=== PATIENT | female | born 1940 | race Two or more races ===

== ENCOUNTER 2018-08-11 14:51 | Outpatient (CLI) | payer MEDICARE, OTHER ==
--- NOTE | 2018-08-11 15:19 | General Progress Note ---
Assessment/Plan Problem List: (1) Gastritis ICD Codes: K29.70 - Gastritis, unspecified, without bleeding SNOMED: 4488709 (2) H/O adenomatous polyp of colon ICD Codes: Z86.010 - Personal history of colonic polyps SNOMED: 661948567 Assessment/Plan: recent EGD and colonoscopy repeat colon in 5 years VSL#3 decrease protonix to 20 mg RTC in 2 months Subjective ROS Limited/Unobtainable: No Objective General Appearance: alert EENT: normal ENT inspection Neck: supple Cardiovascular: normal rate Respiratory/Chest: lungs clear Abdomen: normal bowel sounds, non tender, soft Extremities: non-tender Anthony Weber MD Aug 11, 2018 15:19
[2018-08-12] MEDS ORDERED: ELIQUIS5 MG PO (17:24)
[2018-08-12] MEDS ORDERED: ASPIR 8181 MG ORAL (17:24)
[2018-08-12] MEDS ORDERED: SIMVASTATIN40 MG ORAL (17:24)
[2018-08-12] MEDS ORDERED: DIGOXIN125 MCG ORAL (17:24)
[2018-08-12] MEDS ORDERED: METOPROLOL TAR100 M1 ORAL (17:24)
[2018-08-12] MEDS ORDERED: MELATONIN5 M5 ORAL (17:24)
[2018-08-12] MEDS ORDERED: LEVOTHYROXINE75 MCG ORAL (17:24)
[2018-08-12] MEDS ORDERED: EXELON PO (17:24)
== END 2018-08-11 16:51 | disposition home or self-care (01) ==
LOC: PAN 14:51
DX: K29.70 Gastritis, unspecified, without bleeding (principal); Z86.010 Personal history of colon polyps
CPT/HCPCS: 99203